=== PATIENT | female | born 1980 | race Hispanic/Latino ===

== ENCOUNTER 2017-04-01 18:18 | Emergency (ER) | payer BC ==
[2017-04-01 18:23] VITALS: BP 116/66; PULSE 90; RESP 20; TEMP 98.7; O2SAT 98
--- NOTE | 2017-04-01 19:13 | ED PDOC ---
HPI: Headache Time Seen by Provider: 04/01/17 18:21 Chief Complaint (Nursing): Headache Chief Complaint (Provider): Headache History Per: Patient History/Exam Limitations: no limitations Onset/Duration Of Symptoms: Hrs (x1 hr prior to arrival ) Current Symptoms Are (Timing): Still Present Additional Complaint(s): 36 y/o female presents to the emergency department with a complaint of a headache x1 hour prior to arrival. Reports sustaining a laceration to the scalp associated with swelling after an ice bucket fell on her head. Denies loss of consciousness. Past Medical History Reviewed: Historical Data, Nursing Documentation, Vital Signs Vital Signs: Last Vital Signs Temp 98.7 F 04/01/17 18:21 Pulse 90 04/01/17 18:21 Resp 20 04/01/17 18:21 BP 116/66 04/01/17 18:21 Pulse Ox 98 04/01/17 18:21 - Medical History PMH: No Chronic Diseases - Surgical History Surgical History: No Surg Hx - Family History Family History: States: Unknown Family Hx - Social History Current smoker - smoking cessation education provided: No Alcohol: None Drugs: Denies - Allergies Allergies/Adverse Reactions: Allergies Allergy/AdvReac Type Severity Reaction Status Date / Time No Known Allergies Allergy Verified 04/01/17 18:20 Review of Systems ROS Statement: Except As Marked, All Systems Reviewed And Found Negative Constitutional: Negative for: Other (Loss of consciousness) Skin: Positive for: Other (Laceration to the scalp with swelling) Neurological: Positive for: Headache Physical Exam - Reviewed Nursing Documentation Reviewed: Yes Vital Signs Reviewed: Yes - Physical Exam Appears: Positive for: Non-toxic, No Acute Distress Head Exam: Positive for: ATRAUMATIC, NORMOCEPHALIC. Negative for: NORMAL INSPECTION (3cm linear laceration to the scalp) Skin: Positive for: Normal Color, Warm, Dry Neck: Positive for: Normal, Supple Cardiovascular/Chest: Positive for: Regular Rate, Rhythm. Negative for: Murmur Respiratory: Positive for: Normal Breath Sounds. Negative for: Accessory Muscle Use, Respiratory Distress Neurologic/Psych: Positive for: Alert, Oriented - ECG O2 Sat by Pulse Oximetry: 98 (RA) Pulse Ox Interpretation: Normal Medical Decision Making Medical Decision Making: Time: 18:21 Initial Impression: Headache Initial Plan: --Motrin 600 mg PO --Irrigated with normal saline and sutured with 2 oseas. Time: 19:20 --Patient remains neurologically intact. Pupils are equal, round, and reactive to light. --Instructed to not get the area wet for 24 hours. Keep clean and dry with antibiotic ointment twice a day. Staple removal in 8-10 days. Time: 19:26 Upon provider reevaluation patient is medically stable, and requires no further treatment in the ED at this time. Patient will be discharged home. Counseling was provided and all questions were answered regarding diagnosis and need for follow up with referred clinics. There is agreement to discharge plan. Return if symptoms persist or worsen. Clinical Impression: Head injury and scalp laceration Scribe Attestation: Documented by Lindy Gallardo, acting as a scribe for Jaci Haley PA-C. Provider Scribe Attestation: All medical record entries made by the Scribe were at my direction and personally dictated by me. I have reviewed the chart and agree that the record accurately reflects my personal performance of the history, physical exam, medical decision making, and the department course for this patient. I have also personally directed, reviewed, and agree with the discharge instructions and disposition. Procedures - Laceration/Wound Repair Medial Head Wound Length (cm): 3 Wound's Depth, Shape: linear Wound Explored: no foreign body removed Irrigated w/ Saline (ccs): 1 Wound Repaired With: [place] (2 oseas) Wound Complexity: Simple Sterile Dressing Applied?: No Splint Applied?: No Sling Applied?: No Disposition - Clinical Impression Clinical Impression: Head injury, Scalp laceration - Patient ED Disposition Is Patient to be Admitted: No Counseled Patient/Family Regarding: Diagnosis, Need For Followup - Disposition Disposition: Routine/Home Disposition Time: 19:26 Condition: STABLE Additional Instructions: Do not get wet for 24 hours. Keep clean and dry with antibiotic ointment twice a day. Staple removal in 8-10 days. Instructions: Staple Care (ED)
== END 2017-04-01 19:29 | disposition home or self-care (01) ==
LOC: H.ER 18:18
DX: S09.90XA Unspecified injury of head, initial encounter (principal); S01.01XA Laceration without foreign body of scalp, initial encounter; W20.8XXA Other cause of strike by thrown, projected or falling object, initial encounter; Y93.9 Activity, unspecified